=== PATIENT | male | born 2000 | race Caucasian/White ===

== ENCOUNTER 2022-08-10 19:24 | Emergency (ER) | payer OTHER ==
[~2022-08-10] VITALS: Ht 172.7 cm; Wt 93.5 kg
[2022-08-10 23:29] VITALS: BP 120/65
== END 2022-08-10 23:31 | disposition home or self-care (01) ==
LOC: M ED 19:24
DX: S01.512A Laceration without foreign body of oral cavity, initial encounter (principal); X58.XXXA Exposure to other specified factors, initial encounter; Y93.61 Activity, american tackle football; Y92.830 Public park as the place of occurrence of the external cause; F17.290 Nicotine dependence, other tobacco product, uncomplicated